=== PATIENT | female | born 1950 | race American Indian/Alaskan Native ===

== ENCOUNTER 2017-02-11 10:16 | Inpatient (IN) ==
[2017-02-04 15:11] LABS: Basophils # (Auto) 0 K/mcL (0.0-0.3); Basophils % (Auto) 0.4 % (0.0-2.0); Eosinophils # (Auto) 0.4 K/mcL (0.0-0.7); Eosinophils % (Auto) 3.6 % (0.0-7.0); Granulocytes % (Auto) 59.8 % (38.0-78.0); Lymphocytes # (Auto) 2.9 K/mcL (1.5-4.8); Mean Cell Volume 86.6 fL (80.0-100.0); Mean Corpuscular Hemoglobin 28.6 pg (26.0-34.0); Monocytes % (Auto) 9.2 % (1.0-12.0); Platelet Count 247 K/mcL (140-440); RBC 5.31 M/mcL (4.00-5.20)
[2017-02-04 15:16] LABS: Blood Urea Nitrogen 14 mg/dl (8-23)
[2017-02-04 15:25] LABS: Appearance,Urine CLEAR; Bilirubin,Urine NEG (NEG); Color,Urine STRAW; Glucose,Urine (UA) NEGATIVE (NEG); Leukocyte Esterase,Urine NEG /uL (NEG); Nitrate,Urine NEG (NEG); Protein,Urine NEG (NEG); Specific Gravity,Urine 1.005 (1.000-1.035); Urine Blood NEG mg/dL (<0.03); Urobilinogen,Urine NEG (NEG)
[~2017-02-11 10:16] MED LIST: CELECOXIB 200 MG CAPSULE PO SCH; KETOROLAC 30 MG, ROPIVACAINE HCL/PF 49.5 ML, EPINEPHrine 0.5 MG, 0.9 % SODIUM CHLORIDE ... IJ SCH; PREGABALIN 75 MG CAPSULE PO SCH; ceFAZolin 1 GM VIAL IV SCH; oxyCODONE 10 MG TAB.ER.12H PO SCH
[2017-02-11] MEDS ORDERED: 0.9 % SODIUM CHLORIDE 250 ML IV SCH (10:30)
[2017-02-11] MEDS ORDERED: IPRATROPIUM/ALBUTEROL 3 ML AMPUL.NEB NEB ONE (12:50)
[2017-02-11] MEDS ORDERED: PROPOFOL 200 MG/20 ML VIAL IV ONE (13:15)
[2017-02-11] MEDS ORDERED: MIDAZOLAM 5 MG/5 ML VIAL IV ONE (13:15)
[2017-02-11] MEDS ORDERED: TRANEXAMIC ACID 1,000 MG/10 ML VIAL IV ONE ×2 (13:15→15:12)
[2017-02-11] MEDS ORDERED: ROPIVACAINE HCL/PF 20 ML VIAL IJ ONE (13:15)
[2017-02-11] MEDS ORDERED: PHENYLEPHRINE 10 MG/ML VIAL IV ONE (13:15)
[2017-02-11] MEDS ORDERED: LIDOCAINE HCL/PF 100 MG/5 ML SYRINGE IV ONE (13:15)
[2017-02-11] MEDS ORDERED: DEXAMETHASONE 10 MG/ML VIAL IV ONE (13:15)
[2017-02-11] MEDS ORDERED: ONDANSETRON 4 MG/2 ML VIAL IV ONE (13:15)
[2017-02-11] MEDS ORDERED: NALOXONE HCL 0.4 MG/ML VIAL IV PRN (14:34)
[2017-02-11] MEDS ORDERED: FLUMAZENIL 0.1 MG/ML ML IV PRN (14:34)
[2017-02-11] MEDS ORDERED: diphenhydrAMINE 50 MG/ML VIAL IV PRN (14:34)
[2017-02-11] MEDS ORDERED: ePHEDrine 50 MG/ML AMPUL IV PRN (14:34)
[2017-02-11] MEDS ORDERED: LACTATED RINGERS 250 ML IV PRN (14:34)
[2017-02-11] MEDS ORDERED: ONDANSETRON 4 MG/2 ML VIAL IV PRN ×2 (14:34→15:12)
[2017-02-11] MEDS ORDERED: METHOCARBAMOL 1,000 MG/10 ML VIAL IV PRN (14:34)
[2017-02-11] MEDS ORDERED: IPRATROPIUM/ALBUTEROL 3 ML AMPUL.NEB NEB PRN (14:34)
[2017-02-11] MEDS ORDERED: MEPERIDINE 25 MG/ML SYRINGE IV PRN (14:34)
[2017-02-11] MEDS ORDERED: MEPERIDINE 50 MG/ML SYRINGE IM PRN (14:34)
[2017-02-11] MEDS ORDERED: BENZOCAINE/MENTHOL 1 LOZENGE PO PRN ×2 (14:34→15:12)
[2017-02-11] MEDS ORDERED: LACTATED RINGERS 1,000 ML IV SCH (14:45)
--- NOTE | 2017-02-11 15:11 | Brief Operative Note ---
Date of procedure: 02/11/17 Pre-op diagnosis: R knee medial DJD Post-op diagnosis: other (Right knee medial and lateral DJD) Procedure: Right robotic assisted total knee arthroplasty Grafts/Implants: Yes (Nicolás 2 CR femur, 3 tibia, 11 insert, 33 patella) Anesthesia: spinal, GLMA Findings: medial and lateral arthritis Complications: none Surgeon: Matt Goff Shovel Loader Operator: Hector Tyson Estimated blood loss (cc): 30 Specimens Removed/Pathology: none sent Condition: stable Disposition: PACU
[2017-02-11] MEDS ORDERED: FLEETS ADULT ENEMA PR PRN (15:12)
[2017-02-11] MEDS ORDERED: POLYETHYLENE GLYCOL 3350 17 GM PACKET PO PRN (15:12)
[2017-02-11] MEDS ORDERED: DEXTROSE 31 GM ORAL.SUSP PO PRN (15:12)
[2017-02-11] MEDS ORDERED: DEXTROSE 50% 50 ML VIAL IV PRN (15:12)
[2017-02-11] MEDS ORDERED: MAGNESIUM HYDROXIDE 30 ML ORAL.SUSP PO PRN (15:12)
[2017-02-11] MEDS ORDERED: BISACODYL 10 MG SUPP.RECT PR PRN (15:12)
[2017-02-11] MEDS ORDERED: ALBUTEROL SULFATE 1 PUFF INHALER IH PRN (15:16)
[2017-02-11] MEDS: fentaNYL 100 MCG/2 ML VIAL IV PRN ×4 (15:32→15:48)
[2017-02-11] MEDS: HYDROmorphone 2 MG/ML SYRINGE IV PRN ×2 (16:11→16:19)
--- NOTE | 2017-02-11 16:32 | XRay Report ---
CLINICAL INFORMATION: Postop total knee prostheses COMPARISON: Preoperative exam 11/28/2016 FINDINGS: Total knee prostheses is anatomically aligned. There are no osseous abnormalities. Soft tissue swelling seen as expected IMPRESSION: Negative Interpreted and Authenticated by: Kishor Rueda 02/11/17
[2017-02-11] MEDS: 0.9 % SODIUM CHLORIDE 1,000 ML IV SCH (16:44)
[2017-02-11] MEDS: INSULIN LISPRO 1 UNIT/0.01 ML UNIT SQ SCH ×3 (16:47→21:20)
[2017-02-11] MEDS: KETOROLAC 30 MG/ML VIAL IV SCH ×2 (17:31→23:01)
[2017-02-11] MEDS: SENNOSIDES 1 TABLET PO SCH (20:59)
[2017-02-11] MEDS: oxyCODONE/APAP 5/325MG TABLET PO PRN (20:59)
[2017-02-11] MEDS: DOCUSATE SODIUM 100 MG CAPSULE PO SCH (21:00)
[2017-02-11] MEDS: ASPIRIN 325 MG ENTERIC COATED TABLET PO SCH (21:00)
[2017-02-11] MEDS: CARBIDOPA/LEVODOPA 25/100 TABLET PO SCH (21:00)
[2017-02-11] MEDS: GABAPENTIN 300 MG CAPSULE PO SCH (21:00)
[2017-02-11] MEDS: MIRTAZAPINE 15 MG TABLET PO SCH (21:04)
[2017-02-11] MEDS: ceFAZolin 1 GM VIAL IV SCH (21:20)
[2017-02-11] MEDS: 0.9 % SODIUM CHLORIDE 10 ML SYRINGE IV SCH (21:24)
[2017-02-12] MEDS: 0.9 % SODIUM CHLORIDE 1,000 ML IV SCH ×3 (02:00→20:02)
[2017-02-12] MEDS: oxyCODONE/APAP 5/325MG TABLET PO PRN ×4 (03:57→20:01)
[2017-02-12] MEDS: 0.9 % SODIUM CHLORIDE 10 ML SYRINGE IV SCH ×3 (05:26→22:01)
[2017-02-12] MEDS: KETOROLAC 30 MG/ML VIAL IV SCH ×3 (05:26→17:41)
[2017-02-12] MEDS: ceFAZolin 1 GM VIAL IV SCH (05:26)
[2017-02-12] MEDS: INSULIN LISPRO 1 UNIT/0.01 ML UNIT SQ SCH ×4 (07:46→20:04)
--- NOTE | 2017-02-12 07:51 | Orthopedic Progress Note ---
Orthopedics - Auxillary Note - Subjective Patient Information: Note initiated : 02/12/17 at 7:50 am Service Date, if different from initiated Date: [] Patient: Carolin Bergeron 66 y/o F admitted on 02/11/17 for Right Uni Medial Charlie Knee vs Total Knee Arthropla. Chief Complaint: mild to moderate pain bandages have mild to moderate bloody drainage. nvi-distal Vital Signs Temp Pulse Pulse Pulse Resp BP BP 02/12/17 07:44 96.8 F L 16 126/64 02/12/17 07:41 71 12 02/12/17 04:00 97.7 F 76 16 161/84 02/12/17 00:00 97.7 F 77 16 131/71 02/11/17 20:00 97.6 F 81 16 148/81 02/11/17 18:42 02/11/17 18:00 113/69 02/11/17 17:30 120/74 02/11/17 17:15 139/77 02/11/17 16:30 98.3 F 68 16 148/68 02/11/17 16:15 68 16 168/74 02/11/17 16:00 72 16 154/78 02/11/17 15:45 74 15 147/76 02/11/17 15:35 88 15 161/71 02/11/17 15:28 98.1 F 90 17 168/83 02/11/17 10:37 97.9 F 76 16 182/82 Pulse Ox 02/12/17 07:44 94 02/12/17 07:41 98 02/12/17 04:00 94 02/12/17 00:00 97 02/11/17 20:00 94 02/11/17 18:42 93 02/11/17 18:00 93 02/11/17 17:30 93 02/11/17 17:15 93 02/11/17 16:30 100 02/11/17 16:15 100 02/11/17 16:00 100 02/11/17 15:45 100 02/11/17 15:35 100 02/11/17 15:28 100 02/11/17 10:37 94 Intake and Output 02/11/17 02/12/17 02/12/17 21:59 05:59 13:59 Intake Total 1999 1180 / 1180 Output Total 601 / 601 900 / 900 Balance 1399 / 1399 280 / 280 Intake: IV 1999 790 / 790 Sodium Chloride 0.9% 1, 790 / 790 000 ml @ 100 mls/hr IV . Q10H [facility] Rx#:[id number] Oral 390 / 390 Output: Void Amount 600 / 600 900 / 900 # of times incontinent of / urine Other: Meal (3) packs of crackers # Voids 1 1 Weight 206 lb Laboratory Results - last 24 hr 02/12/17 06:38 Hgb 13.2 Hct 39.2 s/p R total knee arthroplasty-stable mobilize with PT
[2017-02-12] MEDS: SERTRALINE 50 MG TABLET PO SCH (08:05)
[2017-02-12] MEDS: HYDROCHLOROTHIAZIDE 25 MG TABLET PO SCH (08:05)
[2017-02-12] MEDS: ASPIRIN 325 MG ENTERIC COATED TABLET PO SCH ×2 (08:05→20:00)
[2017-02-12] MEDS: DOCUSATE SODIUM 100 MG CAPSULE PO SCH ×2 (08:05→20:01)
[2017-02-12] MEDS: GABAPENTIN 300 MG CAPSULE PO SCH ×2 (08:06→20:00)
[2017-02-12] MEDS: MELOXICAM 7.5 MG TABLET PO SCH (08:07)
--- NOTE | 2017-02-12 10:22 | Operative Note ---
DATE OF OPERATION: 02/11/2017 PREOPERATIVE DIAGNOSIS: Right knee medial compartment osteoarthritis. POSTOPERATIVE DIAGNOSIS: Right knee medial and lateral compartment osteoarthritis. PROCEDURE PERFORMED: Right robotic-assisted total knee arthroplasty placing a size 2 [place] [employer] cruciate retaining femoral component, a size 3 tibial baseplate, a size 3 tibial baseplate, an 11 mm X3 tibial insert with a 33 mm patellar button. SURGEON: Matt Goff MD. INKJET OPERATOR: Mario Tyson PA-C. ANESTHESIA: Spinal plus general. DRAINS: None. SPECIMENS: Bone cuts, which were discarded. BLOOD LOSS: 30 mL. COMPLICATIONS: None. POSTOPERATIVE CONDITION: Stable. INDICATIONS FOR SURGERY: This is a 66-year-old female who has had progressive worsening knee pain. Radiographs showed [id number] medial compartment osteoarthritis. FINDINGS AT SURGERY: She had [id number] medial compartment osteoarthritis, as well as several focal areas of full-thickness cartilage loss off of the lateral femoral condyle as well large osteophytes. Post-procedure showed good overall limb alignment, patellar tracking, and joint stability. PROCEDURE IN DETAIL: The patient had been seen preoperatively. Informed consent had been obtained after discussion of risks and benefits of surgery. Risks including, but not limited to bleeding, possibly requiring transfusion; infection, possibly requiring implant removal and prolonged IV antibiotics; injury to nerves, blood vessels, and other surrounding structures; anesthetic risks; incomplete or no resolution of symptoms; stiffness; pain; instability; DVT and pulmonary embolus risks; and the possibility of needing revision surgery. She understood these risks and wished to proceed. Correct operative site was marked and then patient was taken to the operating room after spinal anesthesia was given. LMA general was given. She was then positioned on the operating table, and then the right lower extremity was carefully prepped and draped in normal sterile fashion. A time-out was performed verifying patient name, operative site, and plan. Esmarch was used to exsanguinate the extremity and tourniquet was inflated. A midline incision was made with a scalpel through skin and subcutaneous tissue. Irrisept was irrigated and then a medial parapatellar arthrotomy made. Subperiosteal exposure was done of the anterior medial tibia and then the retropatellar fat pad was removed. We then made a full inspection of the knee and based off of the lateral compartment cartilage loss and osteophytes, we elected then to proceed with a total knee arthroplasty. Femoral and tibial check points were placed. Anterior horns of the menisci were removed. The ACL was transected. Distal anterior cortex of the femur was exposed subperiosteally and then stab incisions, two were made over the femur and two over the tibia, and bicortical pins placed, two in each. We then attached the arrays. Hip center of rotation was taken as well as medial and lateral malleoli. We then used the blue probe to do our mapping. Once this was completed, we removed osteophytes and then checked our flexion and extension gaps. We adjusted the implant, so we had symmetrical 18 mm flexion and extension gaps. We then used the robotic arm to do our saw cuts. Once this was completed, we sized the tibia to a 3 and externally rotated as bone coverage would allow. This was pinned into place and boss reamer and keel punch used to prepare. We removed this and placed a stemmed tibial trial. Femur was elevated and posterior osteophytes were removed with a curved osteotome and curet. Femoral trial was then impacted and pinned. We drilled our peg holes and trialed a 9 insert. The knee was taken into full extension, and the patella was measured and freehand resected removing 8 mm of bone. We medialized this, sized to a 33 and drilled our holes. A limited lateral facetectomy was performed. We then checked our patellar tracking, which was good, so we went ahead and removed trial implants while definitive implants were opened. We filled the joint with Irrisept. After waiting a minute, we pulse lavaged copiously with saline. We then used CO2 to dry the cancellous bone surfaces, and then antibiotic Palacos was used to cement the tibia, followed by the femur. A 9 trial insert was placed and the patella was cemented. Knee was held in full extension while cement hardened. The joint was filled with Irrisept. We then injected pain cocktail into the pericapsular and subcutaneous tissues. We pulse lavaged then with saline and then flexed the knee up. It did appear we had some mild hyperextension, so we removed the 9 insert trial and went with an 11. This gave us full extension without hyperextension, so we went ahead and opened an 11 insert. Trial was removed and the posterior capsule was injected with pain cocktail and then Irrisept was irrigated and then the definitive insert was impacted. The joint was filled with Irrisept, and after a minute we pulse lavaged again. We then removed checkpoints and then used #2 FiberWire interrupted [id number] in the superior quadrant of the patella. Inferior quadrant was closed with #1 Vicryl [id number], running #1 Vicryl for patellar tendon and quad tendon. Final Irrisept irrigation was done and then after a minute pulse lavage, and then 2-0 Monocryl for subcutaneous and kristyn for skin. Pins were removed and Irrisept irrigated and then kristyn used to close these. Xeroform and sterile dressing were applied and then tourniquet was released. The patient was awakened, extubated, and transferred to recovery in stable condition. [email or web address] Job ID: [id number] Doc ID: [id number] Matt Goff MD
[2017-02-12] MEDS ORDERED: LOPERAMIDE 2 MG CAPSULE PO PRN (18:18)
[2017-02-12] MEDS ORDERED: BENZOCAINE/MENTHOL 1 LOZENGE PO PRN (18:21)
[2017-02-12] MEDS ORDERED: LOPERAMIDE 2 MG CAPSULE PO ONE (19:19)
[2017-02-12] MEDS: MIRTAZAPINE 15 MG TABLET PO SCH (20:00)
[2017-02-12] MEDS: CARBIDOPA/LEVODOPA 25/100 TABLET PO SCH (20:00)
[2017-02-12] MEDS: SENNOSIDES 1 TABLET PO SCH (20:01)
[2017-02-13] MEDS: KETOROLAC 30 MG/ML VIAL IV SCH ×3 (00:55→11:38)
[2017-02-13] MEDS: oxyCODONE/APAP 5/325MG TABLET PO PRN ×4 (05:05→21:29)
[2017-02-13] MEDS: INSULIN LISPRO 1 UNIT/0.01 ML UNIT SQ SCH ×4 (06:43→21:28)
[2017-02-13] MEDS: 0.9 % SODIUM CHLORIDE 10 ML SYRINGE IV SCH ×3 (06:43→21:29)
[2017-02-13] MEDS: HYDROCHLOROTHIAZIDE 25 MG TABLET PO SCH (08:27)
[2017-02-13] MEDS: SERTRALINE 50 MG TABLET PO SCH (08:27)
[2017-02-13] MEDS: GABAPENTIN 300 MG CAPSULE PO SCH ×2 (08:27→21:28)
[2017-02-13] MEDS: MELOXICAM 7.5 MG TABLET PO SCH (08:27)
[2017-02-13] MEDS: ASPIRIN 325 MG ENTERIC COATED TABLET PO SCH ×2 (08:27→21:27)
[2017-02-13] MEDS: DOCUSATE SODIUM 100 MG CAPSULE PO SCH ×2 (08:28→21:27)
[2017-02-13] MEDS: 0.9 % SODIUM CHLORIDE 1,000 ML IV SCH ×2 (08:31→16:54)
--- NOTE | 2017-02-13 10:25 | Orthopedic Progress Note ---
Subjective Patient information: Note initiated : 02/13/17 at 10:23 am Service Date, if different from initiated Date: [] Patient: Carolin Bergeron 66 y/o F admitted on 02/11/17 for Right Uni Medial Charlie Knee vs Total Knee Arthropla. Chief Complaint: [] Principal diagnosis: s/p R total knee Interval history: c/o pain Objective Vital signs: Vital Signs Temp Pulse Pulse Resp BP BP Pulse Ox 02/13/17 06:50 97.0 F 20 145/68 94 02/13/17 04:00 97.4 F 87 20 169/82 93 02/13/17 00:00 97.0 F 72 18 113/59 95 02/12/17 20:00 97.9 F 79 79 20 160/77 95 02/12/17 16:00 97.9 F 86 16 131/78 94 02/12/17 12:00 97.7 F 72 16 112/73 95 Intake and Output 02/12/17 02/13/17 02/13/17 21:59 05:59 13:59 Intake Total 240 / 240 400 / 400 Output Total 500 / 500 450 / 450 Balance -260 / -260 -50 / -50 Intake: Oral 240 / 240 400 / 400 Output: Void Amount 500 / 500 450 / 450 Other: Meal Dinner Percent of Meal Consumed 100% Feeding Ability Independent # Bowel Movements 1 Weight 214 lb Intake & Output: Intake & Output 02/12/17 02/13/17 02/13/17 21:59 05:59 13:59 Intake Total 240 / 240 400 / 400 Output Total 500 / 500 450 / 450 Balance -260 / -260 -50 / -50 Weight 214 lb Intake: Oral 240 / 240 400 / 400 Output: Void Amount 500 / 500 450 / 450 Other: Meal Dinner Percent of Meal Consumed 100% Feeding Ability Independent # Bowel Movements 1 Dressing: Yes clean, Yes dry Weight bearing status: as tolerated Neurological exam IM: Yes alert, Yes oriented X3 - Labs CBC & BMP: 02/13/17 04:38 02/04/17 13:46 Labs: Orthopedic Labs 02/04/17 13:46 PT 12.4 INR 0.9 02/13/17 02/12/17 02/04/17 04:38 06:38 13:46 Hgb 12.9 13.2 15.2 H Hct 38.9 39.2 45.9 Assessment and Plan (1) Status post total right knee replacement POD#2-still c/o pain requiring IV meds -pain control -PT -d/c plan to home tomorrow Status: Acute
--- NOTE | 2017-02-13 10:28 | Discharge Summary ---
Providers - Providers Patient information: Note initiated : 02/13/17 at 10:25 am Service Date, if different from initiated Date: [] Patient: Carolin Bergeron 66 y/o F admitted on 02/11/17 for Right Uni Medial Charlie Knee vs Total Knee Arthropla. Chief Complaint: [] Date of admission: 02/11/17 Discharge date: 02/14/17 Attending physician: Matt Goff Hospitalization Hospital course: admitted postop for pain control and PT. Pain control difficult, was able to d/ c home POD#3. Discharge diagnosis: s/p R total knee arthroplasty Reason for admission: R knee pain Procedures: Right total knee Exam - Exam Clean and dry: Yes Weight bearing status: as tolerated Ortho Discharge - TKA - Patient Instructions Diet: Regular Diet Activity: activity as tolerated, weight bearing as tolerated Total Knee Protocol: For Total Knee: Start ROM ERIC with stationary bike or rocking chair. Work on gaining full extension of knee. Posterior dislocation precautions provided. Hip abductor strengthening and gait training instructions provided. Apply Cryocuff as instructed. Dressing Care: Aquacel Ag - leave on for 5 days Patient Education: Total Knee Replacement (DC) Additional Instructions: Discharge Instructions: Do the exercises at home that physical therapy gave you. You are scheduled to start physical therapy at [facility] ([phone]) on Jan. Take your prescription, photo ID, insurance cards, and current medication list with you to your first physical therapy appointment. Take your prescription to cigar packer and picker any medication or equipment (such as walker, crutches, toilet riser or C.P.M.) Wear comfortable clothing for your physical therapy. Weight bearing as tolerated. You have the Aquacel Ag dressing, leave in place for 7 days then remove. If dressing becomes soiled (turns black), remove and use gauze 4x4 dressing and silvasorb ointment and change daily. Keep incision clean and dry. You may start showering on post op day #2. To avoid constipation while taking any narcotic pain medication, take an over the counter stool softener/laxative. Use your Cryocuff or ice packs as directed, on for 20 minutes at a time throughout the day. This and elevation will help with pain and swelling. Call your physician for fevers above 100.5 or pain not controlled by medication. Your prescriptions are with your discharge information. Some medications were electronically transmitted to your pharmacy of choice. - Problem Maintenance (1) Status post total right knee replacement Status: Acute - Follow Up Plan Follow Up Appointments: Matt Goff MD [Physician] - 02/26/17 10:40 am Disposition: Home, Self-Care Prognosis: Good Rehab Potential: Good - Orders For Discharge Additional Discharge Orders: Physical Therapy at Discharge - TKA Location: Determined By Patient Toilet Riser Discharge Order Location: Determined By Patient Walker Location: Determined By Patient Pending Studies Resuscitation Status Full Code Diet Consistent Carbohydrate Diet Start ThuFeb 11 Dinner Aspirin (Ecotrin) 325 mg PO BID [facility] Last Admin: 02/13/17 08:27 Dose: 325 mg Admin: 02/12/17 20:00 Dose: 325 mg Admin: 02/12/17 08:05 Dose: 325 mg Admin: 02/11/17 21:00 Dose: 325 mg Carbidopa/Levodopa (Sinemet 25/100) 1 tab PO HS [facility] Last Admin: 02/12/17 20:00 Dose: 1 tab Admin: 02/11/17 21:00 Dose: 1 tab Diagnostic Test (Pha) (Accu-Chek) 1 each FS ACHS [facility] Last Admin: 02/13/17 06:43 Dose: Not Given Admin: 02/12/17 20:04 Dose: 1 each Admin: 02/12/17 17:07 Dose: Not Given Admin: 02/12/17 13:16 Dose: Not Given Admin: 02/12/17 07:45 Dose: Not Given Admin: 02/11/17 21:04 Dose: Not Given Admin: 02/11/17 16:44 Dose: 1 each Docusate Sodium (Colace) 100 mg PO BID [facility] Last Admin: 02/13/17 08:28 Dose: Not Given Admin: 02/12/17 20:01 Dose: Not Given Admin: 02/12/17 08:05 Dose: 100 mg Admin: 02/11/17 21:00 Dose: 100 mg Gabapentin (Neurontin) 600 mg PO BID [facility] Last Admin: 02/13/17 08:27 Dose: 600 mg Admin: 02/12/17 20:00 Dose: 600 mg Admin: 02/12/17 08:06 Dose: 600 mg Admin: 02/11/17 21:00 Dose: 600 mg Hydrochlorothiazide (Oretic) 25 mg PO DAILY [facility] Last Admin: 02/13/17 08:27 Dose: 25 mg Admin: 02/12/17 08:05 Dose: 25 mg Sodium Chloride (Sodium Chloride 0.9%) 1,000 mls @ 100 mls/hr IV .Q10H [facility] Last Admin: 02/13/17 08:31 Dose: Admin: 02/12/17 20:02 Dose: Admin: 02/12/17 14:26 Dose: Admin: 02/12/17 02:00 Dose: Infusion: 02/12/17 00:38 Dose: 0 mls/hr Admin: 02/11/17 16:44 Dose: 100 mls/hr Insulin Human Lispro (Humalog) 0 unit SQ ACHS [facility] PRN Reason: Protocol Last Admin: 02/13/17 06:43 Dose: Not Given Admin: 02/12/17 20:04 Dose: Not Given Admin: 02/12/17 17:07 Dose: Not Given Admin: 02/12/17 13:16 Dose: Not Given Admin: 02/12/17 07:46 Dose: Not Given Admin: 02/11/17 21:20 Dose: Not Given Admin: 02/11/17 21:13 Dose: Not Given Admin: 02/11/17 16:47 Dose: Not Given Ketorolac Tromethamine (Toradol) 30 mg IV Q6 [facility] Stop: 02/13/17 12:01 Last Admin: 02/13/17 06:42 Dose: 30 mg Admin: 02/13/17 00:55 Dose: 30 mg Admin: 02/12/17 17:41 Dose: 30 mg Admin: 02/12/17 14:26 Dose: 30 mg Admin: 02/12/17 05:26 Dose: 30 mg Admin: 02/11/17 23:01 Dose: 30 mg Admin: 02/11/17 17:31 Dose: 30 mg Meloxicam (Mobic) 15 mg PO DAILY [facility] Last Admin: 02/13/17 08:27 Dose: 15 mg Admin: 02/12/17 08:07 Dose: 15 mg Mirtazapine (Remeron) 15 mg PO HS [facility] Last Admin: 02/12/17 20:00 Dose: 15 mg Admin: 02/11/17 21:04 Dose: 15 mg Morphine Sulfate (Morphine) 0 mg IV Q1HP PRN PRN Reason: Pain Last Admin: 02/13/17 10:18 Dose: 4 mg Admin: 02/12/17 22:02 Dose: 2 mg Admin: 02/12/17 11:06 Dose: 2 mg Oxycodone/Acetaminophen (Percocet 5-325 Mg) 0 tab PO Q4HP PRN PRN Reason: Pain Last Admin: 02/13/17 09:36 Dose: 2 tab Admin: 02/13/17 05:05 Dose: 1 tab Admin: 02/12/17 20:01 Dose: 2 tab Admin: 02/12/17 15:09 Dose: 2 tab Admin: 02/12/17 08:06 Dose: 2 tab Admin: 02/12/17 03:57 Dose: 1 tab Admin: 02/11/17 20:59 Dose: 1 tab Senna (Senokot) 2 tab PO HS [facility] Last Admin: 02/12/17 20:01 Dose: Not Given Admin: 02/11/17 20:59 Dose: 2 tab Sertraline HCl (Zoloft) 50 mg PO DAILY [facility] Last Admin: 02/13/17 08:27 Dose: 50 mg Admin: 02/12/17 08:05 Dose: 50 mg Sodium Chloride (Saline Flush) 10 ml IV Q8 [facility] Last Admin: 02/13/17 06:43 Dose: 10 ml Admin: 02/12/17 22:01 Dose: 10 ml Admin: 02/12/17 14:27 Dose: 10 ml Admin: 02/12/17 05:26 Dose: 10 ml Admin: 02/11/17 21:24 Dose: Not Given Shift Summary 02/12/17 16:15 Shift Summary by Dereje Scott Patient alert and oriented; uses call light appropriately. Has received pain meds throughout the shift. Percocet appears to be effective. She tends to rate her pain level fairly high. Up using FWW and SBA; she needs to be reminded to charge out clerk the device; she wants to lean on it. Has a saline lock; flushes well. Eating and drinking without GI distress. Up to commode this morning. Initialized on 02/12/17 16:15 - END OF NOTE
[2017-02-13] MEDS: HYDROmorphone 2 MG/ML SYRINGE IV PRN ×2 (11:11→17:35)
[2017-02-13] MEDS: CARBIDOPA/LEVODOPA 25/100 TABLET PO SCH (21:28)
[2017-02-13] MEDS: SENNOSIDES 1 TABLET PO SCH (21:28)
[2017-02-13] MEDS: MIRTAZAPINE 15 MG TABLET PO SCH (21:28)
[2017-02-14] MEDS: oxyCODONE/APAP 5/325MG TABLET PO PRN ×2 (02:16→06:32)
[2017-02-14] MEDS: 0.9 % SODIUM CHLORIDE 1,000 ML IV SCH (03:12)
[2017-02-14] MEDS: INSULIN LISPRO 1 UNIT/0.01 ML UNIT SQ SCH (07:45)
[2017-02-14] MEDS: MELOXICAM 7.5 MG TABLET PO SCH (08:13)
[2017-02-14] MEDS: SERTRALINE 50 MG TABLET PO SCH (08:13)
[2017-02-14] MEDS: HYDROCHLOROTHIAZIDE 25 MG TABLET PO SCH (08:13)
[2017-02-14] MEDS: GABAPENTIN 300 MG CAPSULE PO SCH (08:13)
[2017-02-14] MEDS: ASPIRIN 325 MG ENTERIC COATED TABLET PO SCH (08:14)
[2017-02-14] MEDS: 0.9 % SODIUM CHLORIDE 10 ML SYRINGE IV SCH (08:14)
[2017-02-14] MEDS: DOCUSATE SODIUM 100 MG CAPSULE PO SCH (08:14)
--- NOTE | 2017-02-14 08:48 | Orthopedic Progress Note ---
Subjective Patient information: Note initiated : 02/14/17 at 8:47 am Service Date, if different from initiated Date: [] Patient: Carolin Bergeron 66 y/o F admitted on 02/11/17 for Right Uni Medial Charlie Knee vs Total Knee Arthropla. Chief Complaint: [Pt is stable this morning on post operative day 3 without any significant concerns or complaints. Patients vital signs have remained stable. Patients dressing is dry and exhibits a grossly intact neurovascular and neuromotor exam. Patients 10 point ROS is otherwise negative. ] Principal diagnosis: s/p R total knee Objective Vital signs: Vital Signs Temp Pulse Resp BP BP Pulse Ox 02/14/17 06:20 97.2 F 18 155/68 90 02/14/17 04:00 97.9 F 73 18 137/86 94 02/14/17 00:00 97.9 F 90 18 130/74 94 02/13/17 20:00 98.1 F 80 18 127/72 95 02/13/17 16:00 96.5 F L 16 122/73 93 02/13/17 12:00 97.0 F 18 121/75 96 Intake and Output 02/13/17 02/14/17 02/14/17 21:59 05:59 13:59 Intake Total 1240 / 1240 1200 / 1200 360 / 360 Output Total 600 / 600 Balance 640 / 640 1200 / 1200 360 / 360 Intake: Oral 1240 / 1240 1200 / 1200 360 / 360 Output: Urine/Stool Mix 600 / 600 Other: Meal Dinner Percent of Meal Consumed 100% # Voids 1 2 Weight 208 lb Intake & Output: Intake & Output 02/13/17 02/14/17 02/14/17 21:59 05:59 13:59 Intake Total 1240 / 1240 1200 / 1200 360 / 360 Output Total 600 / 600 Balance 640 / 640 1200 / 1200 360 / 360 Weight 208 lb Intake: Oral 1240 / 1240 1200 / 1200 360 / 360 Output: Urine/Stool Mix 600 / 600 Other: Meal Dinner Percent of Meal Consumed 100% # Voids 1 2 Incision: Yes healing Incision clean and dry: Yes Dressing: Yes clean, Yes dry Weight bearing status: full Neurological exam IM: Yes motor sensory intact, Yes neurovascular intact Extremities exam IM: Yes Foot pink and warm, Yes neurovascular intact - Labs CBC & BMP: 02/14/17 05:00 02/04/17 13:46 Labs: Orthopedic Labs 02/04/17 13:46 PT 12.4 INR 0.9 02/14/17 02/13/17 02/12/17 05:00 04:38 06:38 Hgb 12.1 12.9 13.2 Hct 35.6 L 38.9 39.2 02/04/17 13:46 Hgb 15.2 H Hct 45.9 Assessment and Plan (1) Status post total right knee replacement Patient has been educated regarding wound care and dressings, follow up recommendations, and medication use. We will f/u with the patient within 2-3 weeks for wound check. Status: Acute
== END 2017-02-14 10:40 | disposition home or self-care (01) | DRG 470 ==
LOC: SUR 10:16 → MEDSUR 16:25
PROVIDERS: ADMIT Orthopaedic Surgery; ATTEND Orthopaedic Surgery